=== PATIENT | female | born 1975 | race Caucasian/White ===

== ENCOUNTER 2019-07-24 14:29 | Emergency (ER) | payer OTHER ==
[2019-07-24 15:06] LABS: BASOPHILS # (AUTO) 0.1 10^3/uL (0.0-0.1); BASOPHILS % (AUTO) 0.6 %; EOSINOPHILS # (AUTO) 0.3 10^3/uL (0.0-0.7); EOSINOPHILS % (AUTO) 2.4 %; HGB - HEMOGLOBIN 12.4 g/dL (12.0-16.0); LYMPHOCYTES # (AUTO) 2.3 10^3/uL (1.5-3.5); MEAN CORPUSCULAR HEMOGLOBIN 28.2 pg (27.0-31.0); MEAN CORPUSCULAR HGB CONC 31.8 g/dL (32.0-36.0); MEAN CORPUSCULAR VOLUME 88.8 fL (81.0-99.0); MEAN PLATELET VOLUME 9.2 fL (7.9-10.8); MONOCYTES # (AUTO) 0.5 10^3/uL (0.0-1.0); NEUTROPHILS # (AUTO) 7.2 10^3/uL (1.5-6.6); NEUTROPHILS % (AUTO) 69.6 %; PLT - PLATELET COUNT 329 10^3/uL (130-450); RED BLOOD COUNT 4.39 10^6/uL (4.20-5.40); RED CELL DISTRIBUTION WIDTH 13.9 % (12.0-15.0); WHITE BLOOD COUNT 10.3 x10^3/uL (4.8-10.8)
[2019-07-24 15:20] LABS: ALBUMIN 4.3 g/dL (3.2-5.5); BILIRUBIN,TOTAL 0.6 mg/dL (0.2-1.0); CALCIUM 9.7 mg/dL (8.5-10.3); TOTAL PROTEIN 8.4 g/dL (6.7-8.2)
[2019-07-24 15:59] LABS: BILIRUBIN,URINE NEGATIVE (NEGATIVE); GLUCOSE, URINE (UA) NEGATIVE (NEGATIVE); KETONES,URINE (UA) NEGATIVE (NEGATIVE); LEUKOCYTE ESTERASE, URINE NEGATIVE (NEGATIVE); NITRITE,URINE NEGATIVE (NEGATIVE); OCCULT BLOOD,URINE MODERATE (NEGATIVE); PROTEIN,URINE NEGATIVE (NEGATIVE); UROBILINOGEN,URINE 0.2 (NORMAL) E.U./dL (NORMAL)
[2019-07-24 16:09] LABS: CLARITY,URINE CLEAR (CLEAR)
--- NOTE | 2019-07-24 16:22 | CT Report ---
Reason: L flank pain, h/o stones Procedure Date: 07/24/2019 Accession Number: [id number] / [id number] Procedure: CT - Abdomen/Pelvis WO CPT Code: Final Report FULL RESULT: EXAM: CT ABDOMEN AND PELVIS (CT KUB) EXAM DATE: 07/24/2019 03:51 PM. CLINICAL HISTORY: Flank pain. History of stones. COMPARISONS: None. TECHNIQUE: Routine axial helical CT imaging was performed through the abdomen and pelvis without IV contrast. Reconstructions: Coronal and sagittal. In accordance with CT protocol optimization, one or more of the following dose reduction techniques were utilized for this exam: automated exposure control, adjustment of mA and/or KV based on patient size, or use of iterative reconstructive technique. FINDINGS: Lung Bases: Unremarkable. Right Kidney/Ureter: No stones, hydronephrosis, or hydroureter. No perinephric fat stranding. Left Kidney/Ureter: No stones, hydronephrosis, or hydroureter. No perinephric fat stranding. Other Solid Organs: Noncontrast images of the solid organs are grossly unremarkable. Gallbladder/Bile Ducts: Unremarkable. Peritoneal Cavity: No free fluid, free air or rosa adenopathy. Bowel is grossly unremarkable. Normal appendix. Pelvic Organs: IUD in place. Otherwise the reproductive organs and bladder are unremarkable. Vasculature: Unremarkable. Other: Degenerative disk disease at T11-T12 and L5-S1. IMPRESSION: 1. No urinary tract stones or obstruction. 2. IUD in [address]. RADIA
[2019-07-24 16:27] LABS: BACTERIA,URINE Rare /HPF (None Seen); RBC,URINE 0-5 /HPF (0-5); SQUAMOUS EPITHELIAL CELL,UR MOD Squamous (<= Few)
[2019-07-24] MEDS ORDERED: KETOROLAC 30 MG/ML VIAL IVP STA (16:30)
[2019-07-24] MEDS ORDERED: HYDROmorphone 1 MG/ML CARPUJECT IVP STA (16:30)
--- NOTE | 2019-07-24 16:36 | ED Physician Documentation ---
PD HPI ABD PAIN - Stated complaint Stated Complaint: FEMALE - Chief complaint Chief Complaint: Abd Pain PD PAST MEDICAL HISTORY - Past Medical History Past Medical History: Yes : Kidney stones - Past Surgical History Past Surgical History: No - Present Medications Home Medications: Ambulatory Orders Medication Instructions Recorded Confirmed Cetirizine HCl [Zyrtec] 20 mg PO DAILY 07/24/19 07/24/19 Hydrocodone/Acetaminophen 1 - 2 each PO Q6H PRN #14 tablet 07/24/19 [Hydrocodon-Acetaminophen 5-325] - Allergies Allergies/Adverse Reactions: Allergies Allergy/AdvReac Type Severity Reaction Status Date / Time No Known Drug Allergies Allergy Verified 07/24/19 14:35 - Social History Does the pt smoke?: Yes Smoking Status: Former smoker Does the pt drink ETOH?: Yes Does the pt have substance abuse?: Yes Substance Use and Type: Marijuana - Immunizations Immunizations are current?: Yes Results - Vitals Vitals: Vital Signs - 24 hr 07/24/19 07/24/19 14:36 16:51 Temperature 36.6 C Heart Rate 73 72 Respiratory 17 16 Rate Blood Pressure 178/91 H 140/76 H O2 Saturation 100 98 Oxygen O2 Source Room air - Labs Labs: Laboratory Tests 07/24/19 07/24/19 07/24/19 14:55 14:55 15:55 WBC 10.3 RBC 4.39 Hgb 12.4 Hct 39.0 MCV 88.8 MCH 28.2 MCHC 31.8 L RDW 13.9 Plt Count 329 MPV 9.2 Neut # (Auto) 7.2 H Lymph # (Auto) 2.3 [place] # (Auto) 0.5 Eos # (Auto) 0.3 Baso # (Auto) 0.1 Absolute Nucleated RBC 0.00 Nucleated RBC % 0.0 Sodium 136 Potassium 3.9 Chloride 100 L Carbon Dioxide 28 Anion Gap 8.0 BUN 11 Creatinine 1.0 Estimated GFR (MDRD) 61 L Glucose 102 H Calcium 9.7 Total Bilirubin 0.6 AST 17 ALT 17 Alkaline Phosphatase 84 Total Protein 8.4 H Albumin 4.3 Globulin 4.1 Albumin/Globulin Ratio 1.0 Lipase 36 Urine Color YELLOW Urine Clarity CLEAR Urine pH 7.0 Ur Specific [place] <=1.005 Urine Protein NEGATIVE Urine Glucose (UA) NEGATIVE Urine Ketones NEGATIVE Urine Occult Blood MODERATE H Urine Nitrite NEGATIVE Urine Bilirubin NEGATIVE Urine Urobilinogen 0.2 (NORMAL) Ur Leukocyte Esterase NEGATIVE Urine RBC 0-5 Urine WBC 4-5 Ur Squamous Epith Cells MOD Squamous H Urine Bacteria Rare Ur Microscopic Review INDICATED Urine Culture Comments NOT INDICATED PD MEDICAL DECISION MAKING - ED course Complexity details: reviewed results, re-evaluated patient, considered differential, d/w patient ED course: Patient was worked up with labs, urinalysis, and CT scan of abdomen pelvis, all of which were unremarkable. It is not clear why the patient continues to have abdominal pain discussed with her that she should follow-up with her primary care physician to determine whether further investigation is needed. Pt has been given IM Toradol and Dilaudid here, and is given a small prescription for Vicodin to take at home if needed. Departure - Departure Disposition: Home, Self Care Clinical Impression: Abdominal pain Qualifiers: Abdominal location: left lower quadrant Qualified Code(s): R10.32 - Left lower quadrant pain Condition: Stable Instructions: ED Abdominal Pain Unkn Cause Prescriptions: Hydrocodone/Acetaminophen [Hydrocodon-Acetaminophen 5-325] 1 - 2 each PO Q6H PRN #14 tablet PRN Reason: pain Comments: You have been evaluated With labs, urinalysis, and CT scan of the abdomen and pelvis. No clear-cut reason for your abdominal pain has been found. At this point in time, it is possible that you indeed passed a stone in the last week, but there is no way to verify this. Please follow-up with your primary care physician for further concerns regarding the abdominal pain. If your pain does not improve by the beginning of the week, please call your primary doctor's office to make a follow-up appointment.
[2019-07-24 16:51] VITALS: BP 140/76
== END 2019-07-24 17:11 | disposition home or self-care (01) ==
LOC: ED 14:29
DX: R10.32 Left lower quadrant pain (principal); R31.9 Hematuria, unspecified; Z87.442 Personal history of urinary calculi; Z97.5 Presence of (intrauterine) contraceptive device; Z87.891 Personal history of nicotine dependence
CPT/HCPCS: 36415; 74176; 80053; 81001; 83690; 85025; 96374; 99283; 99284; J1170; 81003; 87086

== ENCOUNTER 2022-10-17 23:27 | Emergency (ER) | payer OTHER ==
[2022-10-17 23:48] VITALS: BP 154/87
[2022-10-18 00:03] LABS: RAPID STREP SCREEN Negative (Negative)
[2022-10-18] MEDS ORDERED: KETOROLAC 30 MG/ML VIAL IM STA (00:06)
--- NOTE | 2022-10-18 00:12 | ED Physician Documentation ---
PD HPI HEENT - Stated complaint Stated Complaint: L EAR PX - Chief complaint Chief Complaint: Heent - History obtained from History obtained from: Patient - Additional information Additional information: 47yF presents to the ED with L ear pain X 3 hours prior to arrival. hx of external ear infections. denies fever. she often has ear drainage. also with sore throat she attributes to allergies PD PAST MEDICAL HISTORY - Past Medical History : Kidney stones - Past Surgical History Past Surgical History: No - Present Medications Home Medications: Ambulatory Orders Medication Instructions Recorded Confirmed Cetirizine HCl [Zyrtec] 20 mg PO DAILY 07/24/19 10/17/22 Ofloxacin [Ofloxacin Otic drops] 2 drops OT TID #5 ml 10/18/22 - Allergies Allergies/Adverse Reactions: Allergies Allergy/AdvReac Type Severity Reaction Status Date / Time No Known Drug Allergies Allergy Verified 10/17/22 23:45 - Social History Does the pt smoke?: Yes Smoking Status: Former smoker Does the pt drink ETOH?: Yes Does the pt have substance abuse?: Yes - Immunizations Immunizations are current?: Yes PD ED PE NORMAL - Vitals Vital signs reviewed: Yes - General General: Alert and oriented X 3, No acute distress, Well developed/nourished - HEENT HEENT: Atraumatic, PERRL, EOMI, Moist mucous membranes, Pharynx benign, Other (BL TMs clear. L ext aud canal erythematous) Results - Vitals Vitals: Vital Signs - 24 hr 10/17/22 23:41 Temperature 36.5 C Heart Rate 67 Respiratory 19 Rate Blood Pressure 154/87 H O2 Saturation 98 Oxygen O2 Source Room air - Labs Labs: Laboratory Tests 10/17/22 23:40 Group A Strep Rapid Negative PD Medical Decision Making - ED course ED course: 47yF presents with L ear pain and sore throat. strep swab negative. she does have swimmers ear on exam. drops prescribed. return precautions given. f/u pcp Departure - Departure Disposition: 01 Home, Self Care Clinical Impression: Ear pain, Otitis externa Condition: Stable Instructions: ED Otitis Externa Prescriptions: Ofloxacin [Ofloxacin Otic drops] 2 drops OT TID #5 ml Comments: A prescription was printed for strong antibiotic ear drops. Please follow up with your primary care provider and return to the ED for new or worsening symptoms or other concerns. Forms: PCP List
== END 2022-10-18 00:24 | disposition home or self-care (01) ==
LOC: ED 23:27
DX: H60.92 Unspecified otitis externa, left ear (principal); Z87.891 Personal history of nicotine dependence
CPT/HCPCS: 87070; 87430; 96372; 99283